=== PATIENT | female | born 1995 | race Caucasian/White ===

== ENCOUNTER 2018-01-13 19:34 | Emergency (ER) | payer BC, OTHER ==
[~2018-01-13] VITALS: Ht 152.4 cm; Wt 104.3 kg
[~2018-01-13 19:34] MED LIST: ALBU1AER9 INH
[2018-01-13 19:42] VITALS: TEMP 36.9; Ht 152.4 cm; Wt 104.3 kg
[2018-01-13] MEDS ORDERED: ONDANSETRON INJ 2 MG/ML 2 ML VIAL IV STA (19:57)
[2018-01-13] MEDS ORDERED: MoRPHine SULFATE 4 MG/ML 1 ML CARP\\VIAL IV STA ×2 (19:57→21:48)
[2018-01-13] MEDS ORDERED: SODIUM CHLORIDE 0.9% 1000ML 1,000 ML IV STA (19:57)
--- NOTE | 2018-01-13 20:02 | EMERGENCY ROOM VISIT NOTE ---
History Report prepared by Camilla: Emily Dupree Under the Supervision of: Dr. Angelita Fleming M.D. 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 She reports that she has had this pain for the past few months but it has significantly worsened over the past few days. She describes her pain was like "little pin pricks" when it began but now it is sharp and constant. She is urinating less frequently than normal and having diarrhea more than 3 times a day. The patient also notes that her pain and diarrhea flares up whenever she eats. She reports she has been dry heaving and vomiting but denies any fevers. She also denies any chance of and is currently on her menstrual cycle. The patient states she went to her PCP earlier today who told her to come in to the ED if she was still experiencing pain. She is a current smoker and smokes about a pack or 2 a week. 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 A total of 10 systems reviewed and were otherwise negative. Past Medical & Surgical Medical Problems: (1) Kidney infection Family History Kidney stones Social History Smoking Status: Current Every Day Smoker Alcohol Use: none Drug Use: none Marital Status: single Housing Status: lives with family Occupation Status: employed Current/Historical Medications Scheduled Bupropion (Wellbutrin Sr), 200 MG PO BID Buspirone Hcl (Buspirone Hcl), 10 MG PO TID Etonogestrel (Nexplanon), 1 DOSE INTRAD DIRECTED Omeprazole (Prilosec), 40 MG PO BID Scheduled PRN Albuterol Sulfate (Proair Respiclick), 2 PUFFS INH Q4H PRN for RESCUE/ASTHMA SYMPTOMS Ranitidine Hcl (Zantac), 1 TAB PO BID PRN for gastritis Allergies Coded Allergies: Fluticasone (Verified Allergy, Intermediate, "CAUSES A MIGRAINE GAITAN", ) Physical Exam Vital Signs Date Time Temp Pulse Resp B/P (MAP) Pulse Ox O2 Delivery O2 Flow Rate FiO2 01/13/18 22:54 80 18 124/80 99 01/13/18 21:34 80 18 122/80 99 Room Air 01/13/18 19:42 36.9 104 18 136/88 99 Room Air Physical Exam Vital signs reviewed. General: Well-appearing obese female, in no significant distress. HEENT: No scleral icterus, PERRLA, neck supple. Atraumatic. Cardiovascular: Regular rate and rhythm, no extra sounds. Pulmonary: Clear to auscultation bilaterally, normal work of breathing. Abdomen: Soft, tender to palpation of the RUQ, nondistended, positive bowel sounds. Musculoskeletal: Atraumatic, no peripheral edema. Neurologic: Patient awake alert and oriented x 3 Skin: Warm, dry, no rash Medical Decision & Procedures ER Provider Diagnostic Interpretation: Radiology results as stated below per my review and radiologist interpretation: CHEST ONE VIEW PORTABLE HISTORY: Right upper quadrant abdominal pain. Vomiting. COMPARISON: Chest 08/17/2016. FINDINGS: The lungs are clear. Cardiac silhouette is normal in size. No pleural effusions. No pneumothorax. IMPRESSION: No acute process. Electronically signed by: Trent Grey M.D. 01/13/2018 9:19 PM Dictated Date/Time: 01/13/2018 9:17 PM ABDOMINAL ULTRASOUND, RIGHT UPPER QUADRANT HISTORY: Right upper quadrant abdominal pain.. COMPARISON: Abdomen and pelvis CT 03/25/2016. FINDINGS: Pancreas: The pancreatic head and tail are obscured by overlying bowel gas. The remaining portions of the pancreas are within normal limits. Liver: Unremarkable. Gallbladder: No gallbladder wall thickening. No gallstones. The technologist reported a negative sonographic Redd's sign. CBD: 3 mm. Right kidney: No hydronephrosis. IMPRESSION: Normal gallbladder. No gallstones. Electronically signed by: Trent Grey M.D. 01/13/2018 9:29 PM Dictated Date/Time: 01/13/2018 9:28 PM Laboratory Results 01/13/18 20:15 Red Blood Count 5.11, Mean Corpuscular Volume 84.5, Mean Corpuscular Hemoglobin 29.2, Mean Corpuscular Hemoglobin Concent 34.5, Mean Platelet Volume 11.1, Neutrophils (%) (Auto) 48.9, Lymphocytes (%) (Auto) 39.6, Monocytes (%) (Auto) 8.2, Eosinophils (%) (Auto) 2.7, Basophils (%) (Auto) 0.3, Neutrophils # (Auto) 3.45, Lymphocytes # (Auto) 2.79, Monocytes # (Auto) 0.58, Eosinophils # (Auto) 0.19, Basophils # (Auto) 0.02 01/13/18 20:15 Test 01/13/18 20:00 01/13/18 20:15 01/13/18 22:22 Urine Pathogenic Casts 0-3 GRANULAR CASTS /lpf (0) Urine Test NEG (NEG) White Blood Count 7.05 K/uL (4.8-10.8) Red Blood Count 5.11 M/uL (4.2-5.4) Hemoglobin 14.9 g/dL (12.0-16.0) Hematocrit 43.2 % (37-47) Mean Corpuscular Volume 84.5 fL (80-100) Mean Corpuscular Hemoglobin 29.2 pg (25-34) Mean Corpuscular Hemoglobin Concent 34.5 g/dl (32-36) Platelet Count 203 K/uL (130-400) Mean Platelet Volume 11.1 fL (7.4-10.4) Neutrophils (%) (Auto) 48.9 % Lymphocytes (%) (Auto) 39.6 % Monocytes (%) (Auto) 8.2 % Eosinophils (%) (Auto) 2.7 % Basophils (%) (Auto) 0.3 % Neutrophils # (Auto) 3.45 K/uL (1.4-6.5) Lymphocytes # (Auto) 2.79 K/uL (1.2-3.4) Monocytes # (Auto) 0.58 K/uL (0.11-0.59) Eosinophils # (Auto) 0.19 K/uL (0-0.5) Basophils # (Auto) 0.02 K/uL (0-0.2) RDW Standard Deviation 40.8 fL (36.4-46.3) RDW Coefficient of Variation 13.4 % (11.5-14.5) Immature Granulocyte % (Auto) 0.3 % Immature Granulocyte # (Auto) 0.02 K/uL (0.00-0.02) Anion Gap 9.0 mmol/L (3-11) Est Creatinine Clear Calc Drug Dose 130.4 ml/min Estimated GFR () 133.0 Estimated GFR (Non- 114.7 BUN/Creatinine Ratio 12.2 (10-20) Calcium Level 8.5 mg/dl (8.5-10.1) Total Bilirubin 0.3 mg/dl (0.2-1) Direct Bilirubin 0.2 mg/dl (0-0.2) Aspartate Amino Transf (AST/SGOT) 15 U/L (15-37) Alanine Aminotransferase (ALT/SGPT) 26 U/L (12-78) Alkaline Phosphatase 72 U/L (45-117) Total Protein 7.3 gm/dl (6.4-8.2) Albumin 3.6 gm/dl (3.4-5.0) Lipase 98 U/L (73-393) Urine Color ORANGE Urine Appearance CLOUDY (CLEAR) Urine pH 5.0 (4.5-7.5) Urine Specific [place] 1.020 (1.000-1.030) Urine Protein TRACE (NEG) Urine Glucose (UA) NEG (NEG) Urine Ketones NEG (NEG) Urine Occult Blood 3+ (NEG) Urine Nitrite NEG (NEG) Urine Bilirubin NEG (NEG) Urine Urobilinogen NEG (NEG) Urine Leukocyte Esterase SMALL (NEG) Urine WBC (Auto) 10-30 /hpf (0-5) Urine RBC (Auto) 10-30 /hpf (0-4) Urine Hyaline Casts (Auto) 1-5 /lpf (0-5) Urine Epithelial Cells (Auto) >30 /lpf (0-5) Urine Bacteria (Auto) 1+ (NEG) Urine Yeast (Auto) (NONE PRSENT) Date/Time Source Procedure Growth Status 01/13/18 22:22 Urine , Clean Catch Urine Culture - Final MORE THAN THREE TYPES OF ORGANISMS NH... Complete Laboratory results per my review. Medications Administered Medications (Trade) Dose Ordered Sig/Jefry Route Start Time Stop Time Status Last Admin Dose Admin Sodium Chloride 1,000 ml @ 999 mls/hr Q1H1M STAT IV 01/13/18 19:57 01/13/18 20:57 DC 01/13/18 20:31 999 MLS/HR Morphine Sulfate (MoRPHine SULFATE INJ) 4 mg NOW STAT IV 01/13/18 19:57 01/13/18 20:00 DC 01/13/18 20:30 4 MG Ondansetron HCl (Zofran Inj) 4 mg NOW STAT IV 01/13/18 19:57 01/13/18 20:00 DC 01/13/18 20:30 4 MG Pantoprazole Sodium (Protonix Tab) 40 mg NOW STAT PO 01/13/18 21:48 01/13/18 21:50 DC 01/13/18 21:56 40 MG Morphine Sulfate (MoRPHine SULFATE INJ) 4 mg NOW STAT IV 01/13/18 21:48 01/13/18 21:50 DC 01/13/18 21:56 4 MG ED Course 1946: Past medical records reviewed. The patient was evaluated in room C3. A complete history and physical examination was performed. 1956: Ordered Zofran Inj 4 mg IV, Morphine Sulfate 4 mg IV, Sodium Chloride 1000 ml @ 999 mls/hr IV 2147: Ordered Morphine Sulfate 4 mg IV, Protonix Tab 40 mg PO 2220: Upon reevaluation, the patient appeared to have improvement of her symptoms. I discussed findings with her. She verbalized agreement of the treatment plan. She was discharged home. Medical Decision Differential diagnosis: Etiologies such as appendicitis, diverticulitis, PUD, biliary pathology, UTI, pancreatitis, obstruction, mesenteric ischemia, aortic pathology, infections, inflammatory bowel disease, renal colic, as well as others were entertained. This patient was evaluated and appeared to be in no significant distress. IV access was obtained and laboratory work was drawn. Patient was placed on the project scheduler. She was given IV morphine and Zofran for her discomfort. Patient was hydrated with normal saline solution. Ultrasound the right upper quadrant was performed and is negative for acute pathology. Patient's laboratory work reveals a normal white blood cell count, normal LFTs. Given several weeks to months of pain, this is likely either a dysfunctional gallbladder or more likely GERD. Patient was given dietary instructions and her Prilosec was increased to 20 mg twice daily. She was advised to use Zantac 150 mg twice daily as needed. She will follow-up with gastroenterology as well as her primary care physician this week. She will return to the ER for worsening of symptoms or any medical concerns. Medication Reconcilliation Current Medication List: was personally reviewed by me Blood Pressure Screening Patient's blood pressure: Normal blood pressure Blood pressure disposition: Did not require urgent referral Impression Primary Impression: GERD (gastroesophageal reflux disease) Scribe Attestation The scribe's documentation has been prepared under my direction and personally reviewed by me in its entirety. I confirm that the note above accurately reflects all work, treatment, procedures, and medical decision making performed by me. Departure Information Dispostion Home / Self-Care Prescriptions Ranitidine Hcl (ZANTAC) 150 Mg Tab 1 TAB PO BID Y for gastritis for 30 Days, #60 TAB 3 Refills Prov: Angelita Fleming M.D. 01/13/18 Referrals Sherif Henry M.D. (PCP) Forms HOME CARE DOCUMENTATION FORM, IMPORTANT VISIT INFORMATION Patient Instructions My [facility] Additional Instructions Diagnosis: GERD Increase your Prilosec to 20 mg twice daily. Zantac 150 mg twice daily as needed. Avoid NSAIDs such as ibuprofen, Aleve and aspirin. Avoid alcohol, soda and coffee. Minimize greasy and spicy foods. Follow-up with your primary care physician as your ultrasound of the gallbladder is negative. You may need to follow-up with gastroenterology. See Dr. Aguilera's information below. Return to the ER for worsening of symptoms or any medical concerns.
[2018-01-13] MEDS ORDERED: BUPR200T2 PO (20:14)
[2018-01-13] MEDS ORDERED: OMEP10CA4 PO (20:14)
[2018-01-13] MEDS ORDERED: ALBU18002 INH (20:14)
[2018-01-13] MEDS ORDERED: ETON1IMP2 INTRAD (20:14)
[2018-01-13] MEDS ORDERED: BUSP-8 PO (20:14)
[2018-01-13 20:38] LABS: BASO % 0.3 %; BASO ABS # 0.02 K/uL (0-0.2); EOS % 2.7 %; EOS ABS # 0.19 K/uL (0-0.5); HEMATOCRIT 43.2 % (37-47); HEMOGLOBIN 14.9 g/dL (12.0-16.0); IG# 0.02 K/uL (0.00-0.02); LYMPH % 39.6 %; LYMPH ABS # 2.79 K/uL (1.2-3.4); MEAN CELL VOLUME 84.5 fL (80-100); MEAN CORPUSCULAR HEMOGLOBIN 29.2 pg (25-34); MEAN CORPUSCULAR HGB CONC 34.5 g/dl (32-36); MEAN PLATELET VOLUME 11.1 fL (7.4-10.4); MONO % 8.2 %; MONO ABS # 0.58 K/uL (0.11-0.59); NEUT % 48.9 %; NEUT ABS # 3.45 K/uL (1.4-6.5); PLATELET COUNT 203 K/uL (130-400); RED CELL DISTRIBUTION WIDTH CV 13.4 % (11.5-14.5); RED CELL DISTRIBUTION WIDTH SD 40.8 fL (36.4-46.3); WHITE BLOOD COUNT 7.05 K/uL (4.8-10.8)
[2018-01-13 20:58] LABS: ALBUMIN 3.6 gm/dl (3.4-5.0); CALCIUM 8.5 mg/dl (8.5-10.1); CREATININE 0.75 mg/dl (0.60-1.20); POTASSIUM 3.5 mmol/L (3.5-5.1)
[2018-01-13 21:01] LABS: TOTAL PROTEIN 7.3 gm/dl (6.4-8.2)
--- NOTE | 2018-01-13 21:21 | DIAGNOSTIC IMAGING REPORT ---
CHEST ONE VIEW PORTABLE HISTORY: Right upper quadrant abdominal pain. Vomiting. COMPARISON: Chest 08/17/2016. FINDINGS: The lungs are clear. Cardiac silhouette is normal in size. No pleural effusions. No pneumothorax. IMPRESSION: No acute process. Electronically signed by: Trent Grey M.D. 01/13/2018 9:19 PM Dictated Date/Time: 01/13/2018 9:17 PM
--- NOTE | 2018-01-13 21:31 | DIAGNOSTIC IMAGING REPORT ---
ABDOMINAL ULTRASOUND, RIGHT UPPER QUADRANT HISTORY: Right upper quadrant abdominal pain.. COMPARISON: Abdomen and pelvis CT 03/25/2016. FINDINGS: Pancreas: The pancreatic head and tail are obscured by overlying bowel gas. The remaining portions of the pancreas are within normal limits. Liver: Unremarkable. Gallbladder: No gallbladder wall thickening. No gallstones. The technologist reported a negative sonographic Redd's sign. CBD: 3 mm. Right kidney: No hydronephrosis. IMPRESSION: Normal gallbladder. No gallstones. Electronically signed by: Trent Grey M.D. 01/13/2018 9:29 PM Dictated Date/Time: 01/13/2018 9:28 PM
[2018-01-13] MEDS ORDERED: PANTOprazole SOD 40 MG TAB PO STA (21:48)
[2018-01-13] MEDS ORDERED: PRLSR20 PO (22:21)
[2018-01-13] MEDS ORDERED: RANI150T3 PO (22:21)
[2018-01-13 22:54] VITALS: BP 124/80; PULSE 80; O2SAT 99
[2018-01-14] MEDS ORDERED: OMEP40CA41 PO (19:57)
== END 2018-01-13 22:55 | disposition home or self-care (01) ==
LOC: C.EDB 19:36 → C.EDC 22:55
DX: K21.9 Gastro-esophageal reflux disease without esophagitis (principal); F17.200 Nicotine dependence, unspecified, uncomplicated; Z79.899 Other long term (current) drug therapy; Z97.5 Presence of (intrauterine) contraceptive device; Z88.8 Allergy status to other drugs, medicaments and biological substances

== ENCOUNTER 2018-01-14 19:02 | Emergency (ER) | payer OTHER ==
[~2018-01-14] VITALS: Ht 152.4 cm; Wt 105.1 kg
[~2018-01-14 19:02] MED LIST changes: +ALBU18002 INH; -ALBU1AER9 INH; +BUPR200T2 PO; +BUSP-8 PO; +ETON1IMP2 INTRAD; +OMEP10CA4 PO; +PRLSR20 PO; +RANI150T3 PO
[2018-01-14 19:09] VITALS: TEMP 36.8; Ht 152.4 cm; Wt 105.1 kg
[2018-01-14] MEDS ORDERED: ONDANSETRON INJ 2 MG/ML 2 ML VIAL IV STA (19:25)
[2018-01-14] MEDS ORDERED: SODIUM CHLORIDE 0.9% 1000ML 1,000 ML IV STA (19:25)
[2018-01-14] MEDS ORDERED: OPTIRAY 320 IV PRN (19:45)
--- NOTE | 2018-01-14 19:52 | EMERGENCY ROOM VISIT NOTE ---
ED Visit Note First contact with patient: 19:15 CHIEF COMPLAINT: Abdominal pain, nausea HISTORY OF PRESENT ILLNESS: This 22-year-old female patient presents to the emergency department, ambulatory, complaining of worsening right-sided abdominal pain. She states the pain is been present for approximately 1 week. She was seen here last evening for the abdominal pain when she had a negative chest x-ray, abdominal ultrasound, and lab work completed. She states she was instructed to increase her GERD medications. She did double her dose of Prilosec , but did not pickle maker the ranitidine prescription. She does not believe the source of her pain to be GERD, as she has a history of GERD and states this feels differently. She states the pain she has experienced today is consistent with the pain she was here for yesterday, however does report it worsens. She does continue to report nausea, but states she has not vomited today. She has continued to experience diarrhea, however states that has improved slightly since yesterday. She denies any fever, chills, chest pain, dyspnea, wheezing, palpitations, pelvic pain, or recent upper respiratory infection symptoms. She denies any dysuria, hematuria, urinary frequency or hesitancy. She is currently on her menstrual cycle. She denies any flank pain. She does report increased pain with deep breathing. She ate cereal today, but has eaten nothing else. She is uncertain if the pain is REVIEW OF SYSTEMS: A 10 system review of systems was performed with positives and pertinent negatives listed in the history of present illness. All other systems were reviewed and are negative. ALLERGIES: Fluticasone MEDICATIONS: Prilosec, ProAir, Nexplanon, Wellbutrin, BuSpar PMH: Anxiety, GERD, asthma, "something with my intestines" SOCIAL HISTORY: Patient lives locally with family. She denies drug, alcohol use. She does admit to smoking 2 packs of cigarettes per week. PHYSICAL EXAM: VITALS: Vitals are noted on the nurse's note and reviewed by myself. Vital signs stable. GENERAL: This is a 22-year-old obese white female, in no acute distress, nondiaphoretic, well-developed well-nourished. SKIN: The skin was without rashes, erythema, edema, or bruising. There is no tenting of the skin. Capillary reflex less than 2 seconds. HEAD: Normocephalic atraumatic. EARS: External auditory canals clear, tympanic membranes pearly banegas without erythema or effusion bilaterally. EYES: Pupils equal round and reactive to light and accommodation. Conjunctivae without injection, sclerae without icterus. Extraocular movements intact. NOSE: Patent, turbinates without inflammation or discharge. No sinus tenderness. MOUTH: Mucous membranes moist. Tonsils are not enlarged. Pharynx without erythema or exudate. Uvula midline. Airway patent. Tongue does not deviate. NECK: Supple without nuchal rigidity. No lymphadenopathy. No thyromegaly. Cervical spine is nontender. No JVD. HEART: Regular rate and rhythm without murmurs gallops or rubs. LUNGS: Clear to auscultation bilaterally without wheezes, rales or rhonchi. No dullness to percussion. No retractions or accessory muscle use. ABDOMEN: Positive bowel sounds x 4. Normal tympanic percussion. Right upper quadrant and epigastric tenderness. The abdomen was otherwise soft, nontender, without masses or organomegaly. Redd sign negative. No guarding or rebound tenderness. MUSCULOSKELETAL: No muscle atrophy, erythema, or edema noted. Full range of motion without joint tenderness in all extremities. No tenderness to palpation. Normal gait. Strength 5/5 throughout. NEURO: Patient was alert and oriented to person place and time. Normal sensation to light and sharp touch. Deep tendon reflexes 2+ throughout. No focal neurological deficits. EMERGENCY DEPARTMENT COURSE: The patient was seen and evaluated as above. I reviewed the past medical records and labs and workup which were performed last night. I did recommend repeat lab work and CT scan. The patient was agreeable initially and orders were placed. The patient contacted her mother on the phone , and rang the call sam for the nurse. The nurse states the patient now declines any labs or imaging. She states she spoke with her mother and they decided that because she has been through similar episodes with abdominal pain and needed further imaging/testing by specialists to make the actual diagnosis, that they do not wish to proceed with the repeat labs and CAT scan at this time. I did discuss the risks associated with leaving without further imaging workup at this time. I discussed with the patient that her symptoms could be related to an appendicitis, diverticulitis, cholecystitis, pancreatitis, or other number of serious conditions. The patient verbalized understanding of the risks associated. She still states she would like to leave without workup. She does request a work note for tomorrow, and states she will follow-up outpatient next week with her PCP and consider contacting the surgeon. I discussed the case with Dr. Mckeon. He was in agreement. The patient was given strict return precautions. Discharge instructions reviewed, patient was discharged home in good condition. I attest that I have personally reviewed the patient's current medication list. Patient was found to have normal blood pressure on screening and does not require follow-up. Etiologies such as appendicitis, diverticulitis, obstruction, inflammatory bowel disease, renal colic, PUD, biliary pathology, pancreatitis, mesenteric ischemia, aortic pathology, infections, genitourinary, UTI, perforated viscus, as well as others were entertained. DIAGNOSIS: RUQ abdominal pain The chart was completed utilizing [employer] Speech voice recognition software. Grammatical errors, random word insertions, pronoun errors, and incomplete sentences are an occasional consequence of this system due to software limitations, ambient noise, and hardware issues. Any formal questions or concerns about the content, text, or information contained within the body of this dictation should be directly addressed to the provider for clarification. Problem List Medical Problems: (1) Kidney infection Status: Chronic Current/Historical Medications Scheduled Bupropion (Wellbutrin Sr), 200 MG PO BID Buspirone Hcl (Buspirone Hcl), 10 MG PO TID Etonogestrel (Nexplanon), 1 DOSE INTRAD DIRECTED Omeprazole (Prilosec), 40 MG PO BID Scheduled PRN Albuterol Sulfate (Proair Respiclick), 2 PUFFS INH Q4H PRN for RESCUE/ASTHMA SYMPTOMS Ranitidine Hcl (Zantac), 1 TAB PO BID PRN for gastritis Allergies Coded Allergies: Fluticasone (Verified Allergy, Intermediate, "CAUSES A MIGRAINE GAITAN", ) Vital Signs Date Time Temp Pulse Resp B/P (MAP) Pulse Ox O2 Delivery O2 Flow Rate FiO2 01/14/18 19:09 36.8 100 20 135/90 99 Room Air Laboratory Results Departure Information Impression Primary Impression: Right upper quadrant abdominal pain Dispostion Home / Self-Care Condition GOOD Referrals Sacha Sweeney D.O. (PCP) Ruel Estrada D.O. Patient Instructions ED Abdominal Pain Unkn Cause, My [facility] Additional Instructions You have been treated in the Emergency Department your Abdominal Pain. I did recommend repeat lab work and imaging studies to rule out acute potentially life -threatening causes for your symptoms and you did refuse. As discussed, her symptoms could be related to acute cholecystitis, acute appendicitis, diverticulitis, pancreatitis, or other concerning, potentially life-threatening diseases. If your symptoms worsen or he began experiencing fevers or other concerning symptoms, return immediately to the emergency department. For pain control, you can use the following [id number] medicines (if >12 yo): Acetaminophen(Tylenol) may be used for fever or pain. Use 1000mg every six hours as needed. Avoid using more than 3000mg in a 24 hour period. 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 This was prescribed to you yesterday by Dr. Fleming. Follow discharge instructions provided to yesterday by Dr. Fleming. 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 Drink plenty of water and stay well hydrated. As with any trip to the Emergency Department, you should follow-up with your Primary Care Provider from today's visit. Return to the emergency department if your symptoms persist despite treatment plan outlined above or if the following symptoms occur: increased fevers, chills , worsening nausea/vomiting, blood in your stool or urine.
[2018-01-14] MEDS ORDERED: OMEP40CA41 PO (19:57)
[2018-01-14 20:09] VITALS: BP 131/87; PULSE 95; O2SAT 99
== END 2018-01-14 20:11 | disposition home or self-care (01) ==
LOC: C.EDB 19:03
DX: R10.11 Right upper quadrant pain (principal); R10.31 Right lower quadrant pain; K21.9 Gastro-esophageal reflux disease without esophagitis; F41.9 Anxiety disorder, unspecified; J45.909 Unspecified asthma, uncomplicated; Z79.899 Other long term (current) drug therapy; Z79.51 Long term (current) use of inhaled steroids